=== PATIENT | male | born 1960 | race Caucasian/White ===

== ENCOUNTER 2019-07-16 13:02 | Emergency (ER) | payer OTHER ==
[~2019-07-16] VITALS: Ht 188 cm; Wt 88.5 kg
[2019-07-16 13:02] VITALS: BP_SYST 134
[2019-07-16] MEDS ORDERED: KETOROLAC TROMETHAMINE 30 MG VIAL IM ONE (13:15)
== END 2019-07-16 13:20 | disposition left against medical advice (07) ==
LOC: EDBD → SED 13:02
DX: M25.572 Pain in left ankle and joints of left foot (principal)
CPT/HCPCS: 99283; J1885

== ENCOUNTER 2019-07-16 21:14 | Emergency (ER) | payer OTHER ==
[~2019-07-16] VITALS: Ht 182.9 cm; Wt 72.6 kg
[2019-07-16 21:15] VITALS: BP_SYST 148
[2019-07-16] MEDS ORDERED: HYDROcodone/ACETAMIN 5-325 MG TAB (NORCO/ VICODIN) PO ONE (22:30)
[2019-07-17 00:53] VITALS: BP_SYST 157
== END 2019-07-17 00:53 | disposition home or self-care (01) ==
LOC: EDBD → SED 21:14
DX: S93.602A Unspecified sprain of left foot, initial encounter (principal); Z88.6 Allergy status to analgesic agent; X58.XXXA Exposure to other specified factors, initial encounter; Y93.89 Activity, other specified; Y92.89 Other specified places as the place of occurrence of the external cause; Y99.8 Other external cause status
CPT/HCPCS: 99283

== ENCOUNTER 2019-07-18 02:00 | Emergency (ER) | payer MEDICAID ==
[~2019-07-18] VITALS: Ht 182.9 cm; Wt 72.6 kg
[2019-07-18 02:05] VITALS: BP_SYST 145
[2019-07-18] MEDS ORDERED: PIPERACILLIN/TAZOBACTAM 2.25 GM in NS 50 ML IV ONE (02:30)
[2019-07-18] MEDS ORDERED: VANCOMYCIN HCL 1,000 MG in NS 250 ML IV ONE (02:30)
[2019-07-18 02:56] LABS: BASOPHILS % (AUTO) 0.5 % (0.0-2.0); EOSINOPHILS # (AUTO) 0.3 K/uL (0.0-0.4); EOSINOPHILS % (AUTO) 2.9 % (0.0-4.0); HEMATOCRIT 40.5 % (36-54); HEMOGLOBIN 13.7 g/dL (14.0-18.0); LYMPHOCYTES # (AUTO) 1.7 K/uL (1.0-5.5); LYMPHOCYTES % (AUTO) 17.5 % (20.5-51.5); MEAN CORPUSCULAR HEMOGLOBIN 32 pg (27-31); MEAN CORPUSCULAR HGB CONC 34 % (32-36); MEAN CORPUSCULAR VOLUME 94 fL (79.0-98.0); MONOCYTES # (AUTO) 0.8 K/uL (0.0-1.0); MONOCYTES % (AUTO) 8.1 % (1.7-9.3); PLATELET COUNT (AUTO) 326 K/uL (130-430); RED BLOOD CELL COUNT(AUTO) 4.34 MIL/uL (4.2-6.2); RED CELL DISTRIBUTION WIDTH 13.7 % (9.0-15.0); WHITE BLOOD COUNT (AUTO) 9.8 K/uL (4.8-10.8)
[2019-07-18 03:08] LABS: CALCIUM 9.2 mg/dL (8.4-11.0); CREATININE 0.88 mg/dL (0.55-1.30); POTASSIUM 3.6 mmol/L (3.5-5.1)
[2019-07-18] MEDS: ACETAMINOPHEN 500 MG TABLET PO ONE ×2 (04:13→04:15)
[2019-07-18 04:31] VITALS: BP_SYST 145
== END 2019-07-18 04:31 | disposition home or self-care (01) ==
LOC: EDBD 02:00 → SED 02:00
DX: R07.89 Other chest pain (principal); I10 Essential (primary) hypertension; R73.9 Hyperglycemia, unspecified; E87.1 Hypo-osmolality and hyponatremia; Z88.6 Allergy status to analgesic agent
CPT/HCPCS: 36415; 71045; 80053; 83880; 84484; 85025; 93005; 99285

== ENCOUNTER 2022-01-12 18:32 | Inpatient (IN) | payer MEDICAID, OTHER ==
[~2022-01-12] VITALS: Ht 182.9 cm; Wt 72.6 kg
[2022-01-12 18:32] VITALS: BP_SYST 130
--- NOTE | 2022-01-12 18:35 | NUR ---
Patient triaged and placed in waiting room. VSS and patient appears in no acute distress at this time. Accompanied by SELF, awaiting available bed, and MD notified of need for MSE.
--- NOTE | 2022-01-12 19:50 | NUR ---
Call pt name in the WR.No answer.
--- NOTE | 2022-01-12 20:00 | NUR ---
Patient left without being seen.
--- NOTE | 2022-01-12 20:30 | NUR ---
Pt back in the WR .Workshop Manager state pt refuse blood drawn.Dr Lundberg made aware.
--- NOTE | 2022-01-12 22:00 | NUR ---
Call pt name in the WR.No answer.
--- NOTE | 2022-01-12 22:10 | NUR ---
Call pt name in the WR.No answer.
--- NOTE | 2022-01-12 22:15 | NUR ---
Patient left without being seen.
--- NOTE | 2022-01-13 01:00 | NUR ---
pt back to ER waiting room.
--- NOTE | 2022-01-13 01:30 | NUR ---
Placed in room 6 . Placed on security monitor, blood pressure machine and pulse oximeter. To gown for exam. Side rails up. Report given to Juliana BELL(reg).
--- NOTE | 2022-01-13 01:35 | NUR ---
Pt refused to take his vital sign.Dr Robertson made aware.
--- NOTE | 2022-01-13 02:00 | NUR ---
Pt sleeping cofortably at this time.NO resp distress note.
--- NOTE | 2022-01-13 02:28 | NUR ---
Khanh jolly in ED - 01/13/22 at 0659 by SDEDPR HOLLI Orozco at bedside examining patient.
--- NOTE | 2022-01-13 02:35 | NUR ---
ER at bedside examining patient.
[2022-01-13 02:50] LABS: BASOPHILS # (AUTO) 0.1 K/uL (0.0-0.2); BASOPHILS % (AUTO) 0.7 % (0.0-2.0); EOSINOPHILS # (AUTO) 0.3 K/uL (0.0-0.4); EOSINOPHILS % (AUTO) 3.5 % (0.0-4.0); HEMATOCRIT 41.8 % (36-54); HEMOGLOBIN 14.5 g/dL (14.0-18.0); LYMPHOCYTES # (AUTO) 1.6 K/uL (1.0-5.5); LYMPHOCYTES % (AUTO) 18.9 % (20.5-51.5); MEAN CORPUSCULAR HEMOGLOBIN 31 pg (27-31); MEAN CORPUSCULAR HGB CONC 35 % (32-36); MEAN CORPUSCULAR VOLUME 89 fL (79.0-98.0); MONOCYTES # (AUTO) 0.9 K/uL (0.0-1.0); MONOCYTES % (AUTO) 10.1 % (1.7-9.3); NEUTROPHILS # (AUTO) 5.8 K/uL (1.8-7.7); NEUTROPHILS % (AUTO) 66.8 % (40.0-70.0); PLATELET COUNT (AUTO) 283 K/uL (130-430); RED CELL DISTRIBUTION WIDTH 14.7 % (9.0-15.0); WHITE BLOOD COUNT (AUTO) 8.6 K/uL (4.8-10.8)
[2022-01-13 03:11] LABS: ANION GAP 1 (5-15); CALCIUM 9.7 mg/dL (8.4-11.0); CHLORIDE 101 mmol/L (98-107); CREATININE 0.76 mg/dL (0.55-1.30); GLUCOSE 103 mg/dL (70-99); POTASSIUM 4.8 mmol/L (3.5-5.1); UREA NITROGEN, BLOOD 10 mg/dL (8-21)
[2022-01-13 03:17] LABS: GFR AFRICAN AMERICAN 135 mL/min (>90)
[2022-01-13 03:20] LABS: ALANINE AMINOTRANSFERASE 20 U/L (12-78); ALBUMIN 3.6 g/dL (3.4-4.8); ASPARTATE AMINOTRANSFERASE 16 U/L (10-37); LIPASE 88 U/L (73-393); TOTAL BILIRUBIN 0.3 mg/dL (0.0-1.0)
--- NOTE | 2022-01-13 06:15 | NUR ---
Admit bed requested Patient will be admitted to care of . Admitted to TELE unit. Diagnosis CP Inpatient (Yes or No) YES Observation (Yes or No) NO Orientation concerns or request close to nursing station (Yes or No) NO Covid Status PENDING On vent or bipap NO Isolation requirements NO Needs a sitter NO From Home (Yes or if No enter name of facility) YES Requires Dialysis (Yes or No) NO Med Rec Completed (Yes of No) PENDING
--- NOTE | 2022-01-13 07:41 | NUR ---
REPORT ON PATIENT AT THIS TIME. PATIENT ALERT AND ORIENTED X 3, LAYING IN BED SLEEPING, DENIES PAIN AT THIS TIME, NSR ON THE MONITOR, VERY RESISTANT TO RECEIVING CARE, EXPLAINED THE IMPORTANCE OF MONITORING VITAL SIGNS SO PATIENT CONSENTED TO RECEIVING VITALS. WILL CONTINUE TO MONITOR THE PATIENT.
[2022-01-13] MEDS ORDERED: POTASSIUM CHLORIDE 20 MEQ TAB.PRT.SR PO PRN (07:45)
[2022-01-13] MEDS ORDERED: ONDANSETRON HCL 4 MG/2 ML VIAL IVP PRN (07:45)
[2022-01-13] MEDS ORDERED: ZOLPIDEM TARTRATE 5 MG TABLET PO PRN (07:45)
[2022-01-13] MEDS ORDERED: DOCUSATE SODIUM 100 MG CAPSULE PO PRN (07:45)
[2022-01-13] MEDS ORDERED: NALOXONE HCL 0.4 MG/ML AMP (NARCAN) IVP PRN ×2 (07:45)
[2022-01-13] MEDS ORDERED: LORazepam 2 MG/ML VIAL IVP PRN (07:45)
[2022-01-13] MEDS ORDERED: MORPHINE 2 MG/ML INJ. SYRINGE IVP PRN ×2 (07:45)
[2022-01-13] MEDS ORDERED: ACETAMINOPHEN 325 MG TABLET PO PRN ×2 (07:45)
[2022-01-13] MEDS ORDERED: MAGNESIUM SULFATE 50 ML IV PRN (07:45)
[2022-01-13] MEDS ORDERED: MUPIROCIN 2% TOPICAL OINTMENT 22 GM NS PRN (07:45)
--- NOTE | 2022-01-13 07:59 | NUR ---
PATIENT WILL BE TRANSFERED TO [facility] AT THIS TIME TELE. BEDSIDE REPORT WILL BE RENDERED
--- NOTE | 2022-01-13 08:14 | NUR ---
Patient will be admitted to care of . Admitted to unit. Will go to room . Belongings list completed. Complete and up to date summary report printed. SBAR report to be given at bedside with opportunity for questions.
--- NOTE | 2022-01-13 08:36 | NUR ---
Patient complain of chest pain, no sign of acute distress. Refused to have peripheral iv line established. Explained to pt why iv line is needed and iv med for pain can not be given without patent iv. But patient is adamant of not having one and pt pulled out iv line when he was in ER. Will try to establish iv line later when patient is more cooperative.
--- NOTE | 2022-01-13 08:40 | NUR ---
Received pt via [facility]. Pt is a/ox4, vss table, no sign acute distress, pt able to ambulate from gurney to bed without assist.NSR on tele monitor, denies any pain but pt is refusing to have peripheral iv inserted. Per Nohelia she will help complete admission. Oriented pt to room and unit routine, side rails up, call light within reach, bed to lowest position. Assuming care for pt.
[2022-01-13] MEDS ORDERED: ENOXAPARIN SODIUM 40 MG/0.4 ML SYRINGE SUBCUT SCH (09:00)
--- NOTE | 2022-01-13 09:26 | NUR ---
CONSULTATION PAGED/CALLED Reason for Consultation: [] CHEST PAIN Person Who was Notified: [] DR WATERMAN Consulting Physician: [] DR WATERMAN Personal Driver Specialty: [] CARDIO Ordering Physician: [] DR BABIN
[2022-01-13 09:31] VITALS: BP_SYST 131
[2022-01-13 11:31] LABS: BARBITURATE, URINE NEGATIVE (NEG <=200); BENZODIAZEPINE, URINE NEGATIVE (NEG <=150); CANNABINOID, URINE NEGATIVE (NEG <=50); COCAINE, URINE NEGATIVE (NEG <=150); METHAMPHETAMINES SCREEN,URINE NEGATIVE (NEG <=500); OPIATE, URINE NEGATIVE (NEG <=100); PHENCYCLIDINE SCREEN,URINE NEGATIVE (NEG <=25); UR TRICYCLIC ANTIDEPRESSANTS NEGATIVE (NEG <=300); URINE AMPHETAMINE NEGATIVE (NEG <=500); URINE METHADONE NEGATIVE (NEG <=200); URINE OXYCODONE SCREEN NEGATIVE (NEG <=100); URINE PROPOXYPHENE SCREEN NEGATIVE (NEG <=300)
[2022-01-13 12:39] VITALS: BP_SYST 120
[2022-01-13 15:01] VITALS: BP_SYST 103
--- NOTE | 2022-01-13 16:00 | NUR ---
No significant changes. Pt is asleep but arousable, no sign of cardiac or respiratory distress.
--- NOTE | 2022-01-13 19:07 | NUR ---
CALLED AND SPOKE TO ASSURANCE MANAGER INSURANCE SHEILA TO HAVE SECURITY COME AND PUT HIS NOLAND IN SAFE.
[2022-01-13 19:30] VITALS: BP_SYST 104
[2022-01-13 19:40] VITALS: BP_SYST 104
--- NOTE | 2022-01-13 19:40 | NUR ---
PM ASSESSMENT; -Pt is a/ox4, resting in bed comfortably. Pt denies any chest pain,pain,sob,or any acute distress. Discussed poc, all safety measures, and if experiencing any chest pain,pain,or any acute distress to use call light for assistance, pt verbalized understanding. call light w/in reach. cont to monitor pt.
--- NOTE | 2022-01-13 22:25 | NUR ---
ROUNDS; -Pt removed telemetry box, attempted to put telemetry box back on, pt refused me. Pt refused to place telemetry box on even after explained risks and benefits. Endorsed by day shift Jelena-nurse that pt wanted his money to be locked up in a safe. I went to pt's room to ask pt it he is still wanting his money to place in a safe,pt changed his mind and pt refused to put his money in a safe this time. Pt stated, " No, Leave me alone!" Adan-charge nurse informed. will call md to notify regarding pt's to place telemetry box.
--- NOTE | 2022-01-13 22:45 | NUR ---
NOTES; DR. ALVARADO INFORMED AND AWARED REGARDING PT REFUSED TELEMETRY BOX,NO FURTHER ORDER. STATED," IT'S FINE."
--- NOTE | 2022-01-13 23:47 | NUR ---
NOTES; DR. WATERMAN INFORMED AND AWARED REGARDING PT REFUSED TELEMETRY BOX AND STATED," DON'T DOWNGRADE HIM TO [facility], KEEP HIM ON TELEMETRY AND DON'T FORCE HIM IF HE IS STILL INSISTING B/C HE IS AGGRESSIVE AND WILL HURT YOU."
--- NOTE | 2022-01-13 23:48 | NUR ---
NOTES; -Pt is still refusing to put a telemetry on him this. pt's condition stable. will attempt in the morning again.
--- NOTE | 2022-01-13 23:56 | NUR ---
NOTES; PT REFUSED VITAL SIGNS TO BE TAKEN
--- NOTE | 2022-01-14 00:55 | NUR ---
NOTES;PT REFUSED TROPONIN DRAW
--- NOTE | 2022-01-14 04:22 | NUR ---
ROUNDS; -Pt is asleep. No s/s any acute distress noted. All safety measures in place. Call light w/in reach. Cont to monitor pt.
--- NOTE | 2022-01-14 06:48 | NUR ---
IT'S CLOSING NOTES; NOT ROUNDS
--- NOTE | 2022-01-14 06:48 | NUR ---
ROUNDS; -Pt is asleep. No s/s any acute distress noted. Pt is still refusing to be on a telemetry. All safety measures in place, side railx2. Call light w/in reach. Will endorse to next nurse to cont care.
--- NOTE | 2022-01-14 08:40 | NUR ---
Report from mine shifter stated that the patient has been requesting to go AMA. The doctor was notified. This morning the patient packed all of his belongings demanded to leave. He signed AMA paper. PIV removed. Paged the doctor.
== END 2022-01-14 21:31 | disposition left against medical advice (07) | DRG 243 ==
LOC: SED 18:32 → STU 01-13 06:11
PROVIDERS: ADMIT General Practice; ATTEND General Practice
DX: K21.9 Gastro-esophageal reflux disease without esophagitis (principal); F17.210 Nicotine dependence, cigarettes, uncomplicated; I25.10 Atherosclerotic heart disease of native coronary artery without angina pectoris; Z53.29 Procedure and treatment not carried out because of patient's decision for other reasons; Z20.822 Contact with and (suspected) exposure to COVID-19; Z88.6 Allergy status to analgesic agent; Z88.5 Allergy status to narcotic agent; Z79.899 Other long term (current) drug therapy; Z59.00 Homelessness unspecified; Z95.5 Presence of coronary angioplasty implant and graft
CPT/HCPCS: 36415; 71045; 80053; 80307; 83690; 83880; 84484; 85025; 85379; 93005; 93306; 99285; G0378; J2270